=== PATIENT | male | born 1985 | race American Indian/Alaskan Native ===

== ENCOUNTER 2016-11-04 09:15 | Emergency (ER) | payer MEDICAID ==
[2016-11-04 09:26] VITALS: BP 135/71; PULSE 81; TEMP 97; O2SAT 99
[2016-11-04] MEDS ORDERED: Albuterol-Ipratrop 3 mg / 0.5 (3 ml) UD INH STA ×3 (10:03→10:06)
[2016-11-04] MEDS ORDERED: Albuterol-Ipratrop 3 mg / 0.5 (3 ml) UD ONE (10:06)
--- NOTE | 2016-11-04 10:09 | ED PDOC ---
HPI: General Adult Time Seen by Provider: 11/04/16 09:43 Chief Complaint (Nursing): Shortness Of Breath Chief Complaint (Provider): shortness of breath History Per: Patient History/Exam Limitations: no limitations Additional Complaint(s): 31yo male complaining of back pain, shortness of breath. States shortness of breath started 3 days ago and is worsening. He also had an episode of chest discomfort in the shower but did not follow up. No fever or chills. Reports dizziness and pain when taking deep breaths Denies taking medication. Smokes 1 pack per day. 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 Bitten by his own pitbull a few days ago in the foot Past Medical History Reviewed: Historical Data, Nursing Documentation, Vital Signs Vital Signs: Last Vital Signs Temp 97 F L 11/04/16 09:26 Pulse 81 11/04/16 09:26 Resp BP 135/71 11/04/16 09:26 Pulse Ox 99 11/04/16 10:24 - Medical History PMH: No Chronic Diseases - Surgical History Surgical History: No Surg Hx - Family History Family History: States: No Known Family Hx - Social History Current smoker - smoking cessation education provided: Yes - Home Medications Home Medications: Ambulatory Orders Medication Instructions Recorded Amoxicillin/Clavulanate [Augmentin 1 tab PO BID 7 Days 01/03/16 875 MG-125 MG] Naproxen 500 mg PO BID PRN #30 tablet 01/03/16 Clindamycin [Cleocin] 300 mg PO TID #30 cap 03/27/16 Oxycodone HCl/Acetaminophen 1 tab PO Q6H PRN #10 tab 03/27/16 [Percocet 325 mg-5 mg] Albuterol Sulfate [Proair Hfa] 2 puff IH Q4H PRN #1 unit 11/04/16 predniSONE [predniSONE Tab] 40 mg PO DAILY #10 tab 11/04/16 - Allergies Allergies/Adverse Reactions: Allergies Allergy/AdvReac Type Severity Reaction Status Date / Time No Known Allergies Allergy Verified 01/03/16 02:53 Review of Systems ROS Statement: Except As Marked, All Systems Reviewed And Found Negative Respiratory: Positive for: Shortness of Breath, Pleuritic Pain Neurological: Positive for: Dizziness Physical Exam - Reviewed Nursing Documentation Reviewed: Yes Vital Signs Reviewed: Yes - Physical Exam Appears: Positive for: Well, Non-toxic, No Acute Distress Head Exam: Positive for: ATRAUMATIC, NORMAL INSPECTION, NORMOCEPHALIC Skin: Positive for: Warm, Dry Eye Exam: Positive for: EOMI, PERRL ENT: Positive for: Normal ENT Inspection Cardiovascular/Chest: Positive for: Regular Rate, Rhythm Respiratory: Positive for: Normal Breath Sounds (shallow). Negative for: Rales , Rhonchi, Wheezing Extremity: Positive for: Other (site of dog bite clean and healing well) Neurologic/Psych: Positive for: Other (awake, alert) - Laboratory Results Result Diagrams: 11/04/16 10:20 11/04/16 10:20 - ECG ECG: Positive for: Interpreted By Me, Viewed By Me Interpretation Of ECG: normal axis, normal sinus rhythm O2 Sat by Pulse Oximetry: 99 (RA) Pulse Ox Interpretation: Normal - Radiology X-Ray: Read By Radiologist X-Ray Interpretation: No Acute Disease - Progress Re-evaluation Time: 14:16 Condition: Re-examined, Improved Medical Decision Making Medical Decision Makin Impression: shortness of breath, chest pain. Differential includes COPD, anxiety, viral pneumonitis, bacterial pneumonitis. Plan: ABG, CXR, EKG, labs, duonebs, solumedrol ordered. Disposition - Clinical Impression Clinical Impression: Reactive airway disease - Patient ED Disposition Is Patient to be Admitted: No Doctor Will See Patient In The: Office Counseled Patient/Family Regarding: Diagnosis, Need For Followup, Rx Given - Disposition Disposition: Routine/Home Disposition Time: 14:18 Condition: IMPROVED Prescriptions: Albuterol Sulfate [Proair Hfa] 2 puff IH Q4H PRN #1 unit PRN Reason: Wheezing predniSONE [predniSONE Tab] 40 mg PO DAILY #10 tab Instructions: Reactive Airways Disease (ED) Additional Comments - Additional Comments Additional Comments: Scribe Attestation Documented by Dino Tee, acting as a scribe for Amelia Joseph MD. Provider Scribe Attestation All medical record entries made by the Scribe were at my direction and personally dictated by me. I have reviewed the chart and agree that the record accurately reflects my personal performance of the history, physical exam, medical decision making, and the department course for this patient. I have also personally directed, reviewed, and agree with the discharge instructions and disposition.
[2016-11-04 10:27] LABS: ABG ALLEN TEST YES; ARTERIAL BLOOD GAS HCO3 26.2 mmol/L (21-28); ARTERIAL BLOOD GAS O2 CAPACITY 22.4 mL/dL (16-24); ARTERIAL BLOOD GAS O2 CONTENT 22.1 ML/dL (15-23); ARTERIAL BLOOD GAS PH 7.48 (7.35-7.45); ARTERIAL BLOOD GAS PO2 130 mm/Hg (80-100); ARTERIAL BLOOD HGB O2 SAT 93.3 % (95.0-98.0); CARBOXYHEMOGLOBIN 2.8 % (0.5-1.5); HHB 1.1 % (0.0-5.0); METHEMOGLOBIN 2.8 % (0.0-3.0)
[2016-11-04 10:36] LABS: BASO # 0.1 K/uL (0.0-0.2); BASO % 0.8 % (0.0-2.0); EOS # 0.2 K/uL (0.0-0.7); EOS % 3.3 % (0.0-4.0); HEMATOCRIT 46.9 % (35.0-51.0); LYMPH # 2.5 K/uL (1.0-4.3); LYMPH % 36.4 % (20.0-40.0); MEAN CELL VOLUME 87.6 fl (80.0-94.0); MEAN CORPUSCULAR HEMOGLOBIN 29.4 pg (27.0-31.0); MEAN CORPUSCULAR HGB CONC 33.5 g/dL (33.0-37.0); MONO # 0.5 K/uL (0.0-0.8); MONO % 7.3 % (0.0-10.0); NEUT # 3.6 K/uL (1.8-7.0); NEUT % 52.2 % (50.0-75.0); NRBC % 0.2 % (0.0-0.0); RED CELL DISTRIBUTION WIDTH 13.5 % (11.5-14.5); WHITE BLOOD COUNT 6.8 K/uL (4.8-10.8)
[2016-11-04 10:49] LABS: ALB/GLOB RATIO 1.2 (1.0-2.1); ALKALINE PHOSPHATASE 54 U/L (38-126); ALT/SGPT 57 U/L (21-72); AST/SGOT 33 U/L (17-59); BILIRUBIN,TOTAL 0.7 mg/dl (0.2-1.3); BLOOD UREA NITROGEN 19 mg/dl (9-20); CALCIUM 9.4 mg/dL (8.4-10.2); CARBON DIOXIDE 23 mmol/L (22-30); CHLORIDE 105 mmol/L (98-107); GFR AFRICAN-AMERICAN > 60; GLUCOSE,RANDOM 101 mg/dL (75-110); POTASSIUM 4.2 MMOL/L (3.6-5.0); SODIUM 142 mmol/l (132-148); TOTAL PROTEIN 8.1 G/DL (6.3-8.2)
--- NOTE | 2016-11-04 11:04 | RAD ---
HISTORY: cp, dyspnea COMPARISON: No prior. TECHNIQUE: Chest PA and lateral FINDINGS: LUNGS: No active pulmonary disease. PLEURA: No significant pleural effusion identified. No pneumothorax apparent. CARDIOVASCULAR: Normal. OSSEOUS STRUCTURES: No significant abnormalities. VISUALIZED UPPER ABDOMEN: Normal. OTHER FINDINGS: None. IMPRESSION: No active disease.
--- NOTE | 2016-11-06 08:10 | CARD ---
APPROVED REPORT EKG Measurement Heart [id number] <Conclusion> Normal sinus rhythm Normal ECG
== END 2016-11-04 14:43 | disposition home or self-care (01) ==
LOC: H.ER 09:15
DX: J45.909 Unspecified asthma, uncomplicated (principal); R06.00 Dyspnea, unspecified

== ENCOUNTER 2018-03-05 01:07 | Emergency (ER) | payer BC, MEDICAID ==
[2018-03-05 01:20] VITALS: O2SAT 98
--- NOTE | 2018-03-05 01:37 | ED PDOC ---
HPI: Dental Pain/Injury Time Seen by Provider: 03/05/18 01:23 Chief Complaint (Nursing): Dental Pain Chief Complaint (Provider): left sided toothache History Per: Patient Onset/Duration Of Symptoms: Days (x2) Current Symptoms Are (Timing): Still Present Additional Complaint(s): Eitan Mccabe is a 32 year old male, with no significant past medical history, who presents to the emergency department complaining of left sided toothache onset for x2 days. Patient states he was eating popcorn and ate a kernel that cracked a tooth in the back. Patient took ibuprofen today and has a scheduled dental appointment this Saturday. He reports increased pain with mastication but denies any fever, chills or other medical complaints. PMD: None provided. Past Medical History Reviewed: Historical Data, Nursing Documentation, Vital Signs Vital Signs: Last Vital Signs Temp 98.0 F 03/05/18 01:14 Pulse 79 03/05/18 01:14 Resp 17 03/05/18 01:14 BP 137/86 03/05/18 01:14 Pulse Ox 98 03/05/18 01:14 - Medical History PMH: Asthma - Surgical History Surgical History: No Surg Hx - Family History Family History: States: No Known Family Hx - Social History Current smoker - smoking cessation education provided: No Alcohol: None Drugs: Denies - Home Medications Home Medications: Ambulatory Orders Medication Instructions Recorded Amoxicillin/Clavulanate [Augmentin 1 tab PO BID 7 Days tab 01/03/16 875 MG-125 MG] Naproxen 500 mg PO BID PRN #30 tablet 01/03/16 Clindamycin [Cleocin] 300 mg PO TID #30 cap 03/27/16 Oxycodone HCl/Acetaminophen 1 tab PO Q6H PRN #10 tab 03/27/16 [Percocet 325 mg-5 mg] Albuterol Sulfate [Proair Hfa] 2 puff IH Q4H PRN #1 unit 11/04/16 predniSONE [predniSONE Tab] 40 mg PO DAILY #10 tab 11/04/16 Amoxicillin/Clavulanate [Augmentin 1 tab PO BID #14 tab 03/05/18 875 MG-125 MG] Naproxen [Naprosyn] 500 mg PO Q12 #14 tab 03/05/18 - Allergies Allergies/Adverse Reactions: Allergies Allergy/AdvReac Type Severity Reaction Status Date / Time No Known Allergies Allergy Verified 01/03/16 02:53 Review of Systems ROS Statement: Except As Marked, All Systems Reviewed And Found Negative Constitutional: Negative for: Fever, Chills ENT: Positive for: Mouth Pain (dental pain) Physical Exam - Reviewed Nursing Documentation Reviewed: Yes Vital Signs Reviewed: Yes - Physical Exam Appears: Positive for: No Acute Distress Head Exam: Positive for: ATRAUMATIC, NORMAL INSPECTION, NORMOCEPHALIC Skin: Positive for: Normal Color, Warm, Dry Eye Exam: Positive for: Normal appearance, EOMI, PERRL ENT: Positive for: Other (tenderness to left mandibular surface and dental caries to teeth #18 & 19) Neck: Positive for: Painless ROM Extremity: Positive for: Normal ROM (all extremities) Neurologic/Psych: Positive for: Alert, Oriented - ECG O2 Sat by Pulse Oximetry: 98 (RA) Pulse Ox Interpretation: Normal Medical Decision Making Medical Decision Making: Time: 01:23 Initial Impression: 32 y/o male with dental caries. Initial Plan: --Augmentin 1 tab PO --Naproxen 500 mg PO 01:33 -Upon provider reevaluation patient is feeling better, is medically stable, and requires no further treatment in the ED at this time. Patient will be discharged home with Rx for Augmentin and Naproxen. Counseling was provided and all questions were answered regarding diagnosis and need for follow up with dental appointment. There is agreement to discharge plan. Return if symptoms persist or worsen. Disposition - Clinical Impression Clinical Impression: Dental trauma, Dental caries - Disposition Disposition: Routine/Home Disposition Time: 01:33 Condition: STABLE Prescriptions: Amoxicillin/Clavulanate [Augmentin 875 MG-125 MG] 1 tab PO BID #14 tab Naproxen [Naprosyn] 500 mg PO Q12 #14 tab Instructions: Tooth Decay, Adult Forms: [facility] (Turkish)
[2018-03-05] MEDS ORDERED: Amoxicillin-Clav 875-125 mg Tab PO ONE (01:46)
[2018-03-05] MEDS ORDERED: Naproxen 500 MG TAB PO ONE (01:46)
[2018-03-05] MEDS: Naproxen 500 MG TAB PO STA (01:49)
[2018-03-05] MEDS: Amoxicillin-Clav 875-125 mg Tab PO STA (01:50)
[2018-03-05 02:59] VITALS: BP 122/78; PULSE 86; RESP 18; TEMP 98.2
[2018-03-05] MEDS ORDERED: Amoxicillin-Clav 875-125 mg Tab PO SCH (09:00)
== END 2018-03-05 02:25 | disposition home or self-care (01) ==
LOC: H.ER 01:07
DX: K02.9 Dental caries, unspecified (principal)